=== PATIENT | male | born 1960 | race Caucasian/White ===

== ENCOUNTER 2016-03-13 11:47 | Outpatient (RCR) | payer MEDICARE ==
[~2016-03-13 11:47] MED LIST: ASPI81TA85 PO; COLA100C PO; LISI10TA2 PO; PERC5TAB6 PO; TYLE325T5 PO
== END 2016-04-10 ==
LOC: M ONCR 11:47
PROVIDERS: ATTEND Radiology Radiation Oncology
DX: C61 Malignant neoplasm of prostate (principal)

== ENCOUNTER 2016-04-02 08:11 | Emergency (ER) | payer MEDICARE ==
--- NOTE | 2016-04-02 10:10 | EDDOCDS ---
Physician Documentation [facility] Name: Davie Fulton Age: 56 yrs Sex: Male : 1960 Arrival Date: 04/02/2016 Time: 08:11 Bed I2 / M2 Private MD: Charis Caro ANP Disposition: 04/02/16 09:54 Discharged to Home/Self Care. Impression: Retention of urine. - Condition is Stable. - Discharge Instructions: Urinary Retention, Acute, Male. - Medication Reconciliation, Local Pharmacy Hours form. - Follow up: iJm King; When: Call to arrange an appointment; Reason: Recheck today's complaints. Follow up: Emergency Department; When: As needed; Reason: if unable to urinate and can't get into urology office. - Problem is new. - Symptoms have improved. Historical: - Allergies: no known allergies; - Home Meds: 1. Zestoretic 20-12.5 mg Oral tab 1 tab once daily (Last dose: 04/02/2016 07:00) 2. 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 No barriers to communication noted, Speaks appropriately for age. - Family history: Not pertinent. - : The pt / caregiver states he / she is not on anticoagulants. Home medication list is obtained from the patient, Unable to Verify Home Med List with the patient / caregiver. - Exposure Risk Screening:: None identified. Vital Signs: 04/02 08:18 BP 154 / 96; Pulse 96; Resp 16; Temp 97.9(TE); Pulse Ox 96% on R/A; Weight 130.18 kg / ml6 287 lbs; Height 5 ft. 11 in. (180.34 cm) (R); Pain 0/10; 10:07 BP 148 / 88; Pulse 92; Resp 20; Temp 97.4; Pulse Ox 97% on R/A; Pain 0/10; dls 08:18 Body Mass Index 40.03 (130.18 kg, 180.34 cm) ml6 MDM: 08:30 Bladder Scan please ordered. ar2 08:31 UA Ordered. EDMS 08:31 Urine Culture Ordered. EDMS 08:58 Straight cath ordered. ar2 09:35 Financial registration complete. mm15 09:37 [facility] Payment Agreement was scanned into [employer] and attached to record. mm15 09:52 UA Reviewed. ar2 Signatures: Dispatcher MedHost EDMS Bebe Hassan RN RN dls Lonny Vásquez PA-C PADidiC ar2 Jerad Robert RN RN ml6 Alex Tsai mm15 The chart was reviewed and I authenticate all verbal orders and agree with the evaluation and treatment provided.Attachments: 09:37 [facility] Payment Agreement mm15 MTDD
--- NOTE | 2016-04-02 10:10 | EDDOCDS ---
Nurse's Notes [facility] Name: Davie Fulton Age: 56 yrs Sex: Male : 1960 Arrival Date: 04/02/2016 Time: 08:11 Bed I2 / M2 Private MD: Charis Caro ANP Diagnosis: Retention of urine Presentation: 04/02 08:17 Presenting complaint: Patient states: states Hx of Prostate CA, Prostatectomy done ml6 nov-dec last year, last radiation treatment was Saturday, states oliguria since yesterday afternoon. Adult Sepsis Screening: The patient does not have new or worsening altered mentation. Patient's respiratory rate is less than 22. Systolic blood pressure is greater than 100. Patient has a qSOFA score of 0- Negative Sepsis Screen. Suicide/Homicide risk assessment- the patient denies having any suicidal and/or homicidal ideations and does not present with any other emotional, behavioral or mental health complaints. Status: Patient is not a automotive service manager or dependent. Transition of care: patient was not received from another setting of care. 08:17 Acuity: JOJO Level 3 ml6 08:17 Method Of Arrival: Walkin/Carried/Asstd ml6 Triage Assessment: 08:20 General: Appears in no apparent distress, Behavior is appropriate for age, cooperative. ml6 Pain: Denies pain. HIV screening NA for this visit Offered previously. Neurological: No deficits noted. Cardiovascular: No deficits noted. Capillary refill < 3 seconds is brisk in bilateral fingers toes. Respiratory: No deficits noted. GI: No deficits noted. : Reports urinary frequency. Historical: - Allergies: no known allergies; - Home Meds: 1. Zestoretic 20-12.5 mg Oral tab 1 tab once daily (Last dose: 04/02/2016 07:00) 2. 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 No barriers to communication noted, Speaks appropriately for age. - Family history: Not pertinent. - : The pt / caregiver states he / she is not on anticoagulants. Home medication list is obtained from the patient, Unable to Verify Home Med List with the patient / caregiver. - Exposure Risk Screening:: None identified. Screenin:17 Screening information is obtained from the patient. Fall risk: No risks identified. dls Assistance ADL's: requires no assistance with activities of daily living. Abuse/DV Screen: The patient / caregiver reports he/she is: not in a situation that causes fear, pain or injury. Nutritional screening: No deficits noted. Advance Directives: Currently, there is no health care proxy. There is no active DNR order. There is no living will. There is no Power of Diamond Polisher. home support is adequate. Assessment: 08:49 General: Pt brought into exam room sent to bathroom to void and was unable to. Bladder dls scan shows 289ml urine in bladder abdomen is obese non distended pt c/o feels like penis is swollen foreskin retracts easily no signs of swelling or redness.. 09:18 General: Straight cath 500cc urine obtained spec to lab.. dls Vital Signs: 08:18 BP 154 / 96; Pulse 96; Resp 16; Temp 97.9(TE); Pulse Ox 96% on R/A; Weight 130.18 kg; ml6 Height 5 ft. 11 in. (180.34 cm) (R); Pain 0/10; 10:07 BP 148 / 88; Pulse 92; Resp 20; Temp 97.4; Pulse Ox 97% on R/A; Pain 0/10; dls 08:18 Body Mass Index 40.03 (130.18 kg, 180.34 cm) ml6 Vitals: 08:18 Log In Time: April 02, 2016 at 08:10. ml6 ED Course: 08:12 Patient visited by Annetta Stewart Reg. lg 08:12 Charis Caro is Private Physician. lg 08:12 Patient moved to Waiting lg 08:18 Triage Initiated ml6 08:32 Patient moved to I2 / M2 ml6 08:35 Lonny V[facility]quez [facility]C [facility] ar2 08:35 Elaine De La Cruz MD is Attending Physician. ar2 08:38 Patient visited by Lonny Vásquez PA-C. ar2 09:13 Urine Culture Sent. dls 09:13 UA Sent. dls 09:17 The patient / caregiver is instructed regarding the plan of care and ED course. dls Accompanied by Family Member, Patient has correct armband on for positive identification. Placed in gown. Bed in low position. Call light in reach. Side rails up X 1. 09:17 No IV's were initiated during this patient's visit. No procedures done that require dls assistance. Straight cath inserted 16 Fr. returned bloody urine. Patient tolerated well. 09:37 [facility] Payment Agreement was scanned into [employer] and attached to record. mm15 09:38 Patient visited by Bebe Hassan RN. dls 09:52 Jim King is Referral Physician. ar2 Order Results: Lab Order: UA; SPEC'M 04/02/16 09:14 Test: APPEARANCE, URINE; Value: HAZY; Range: CLEAR; Status: F Test: COLOR, URINE; Value: YELLOW; Range: YELLOW; Status: F Test: PH,URINE; Value: 5.0; Range: 5.0-9.0; Units: UNITS; Status: F Test: SPECIFIC GRAVITY URINE AUTO; Value: 1.012; Range: 1.002-1.035; Status: F Test: PROTEIN, URINE AUTO; Value: 1+; Range: NEGATIVE; Abnormal: Above high normal; Units: mg/dL; Status: F Test: GLUCOSE, URINE (UA) AUTO; Value: NEGATIVE; Range: NEGATIVE; Units: mg/dL; Status: F Test: KETONE, URINE AUTO; Value: NEGATIVE; Range: NEGATIVE; Units: mg/dL; Status: F Test: UROBILINOGEN, URINE AUTO; Value: 0.2; Range: 0.0-2.0; Units: mg/dL; Status: F Test: BILIRUBIN, URINE AUTO; Value: NEGATIVE; Range: NEGATIVE; Status: F Test: NITRITE, URINE AUTO; Value: NEGATIVE; Range: NEGATIVE; Status: F Test: LEUKOCYTE ESTERASE, URINE AUTO; Value: TRACE; Range: NEGATIVE; Abnormal: Above high normal; Status: F Test: BLOOD, URINE BLOOD; Value: 3+; Range: NEGATIVE; Abnormal: Above high normal; Status: F Test: WBC, URINE AUTO; Value: 27; Range: 0-3; Abnormal: Above high normal; Units: /HPF; Status: F Test: RBC, URINE AUTO; Value: 71; Range: 0-3; Abnormal: Above high normal; Units: /HPF; Status: F Test: BACTERIA, URINE AUTO; Value: NEGATIVE; Range: NEGATIVE; Status: F Test: SQUAMOUS EPITHELIAL CELL UR AU; Value: 0; Range: 0-6; Units: /HPF; Status: F Test: MUCUS, URINE; Value: SMALL; Range: NEGATIVE; Status: F Test: HYALINE CAST, URINE AUTO; Value: 0; Range: 0-1; Units: /LPF; Status: F Outcome: 09:54 Discharge ordered by Provider. ar2 10:08 Discharge Assessment: Patient awake, alert and oriented x 3. No cognitive and/or dls functional deficits noted. Patient verbalized understanding of disposition instructions. patient administered narcotics - no. The following High Risk Discharge criteria are identified: None. Discharged to home ambulatory, with family. Condition: stable Condition: improved. Discharge instructions given to patient, family, Instructed on discharge instructions, follow up and referral plans. Demonstrated understanding of instructions, Pt was receptive of discharge instructions/ teaching. No special radiology studies were completed. Property sent home with patient. 10:09 Patient left the ED. dls Signatures: Bebe Hassan, RN RN dls Annetta Stewart, Daryn Reg Lonny Vásquez, PA-C PA-C ar2 Jerad Robert RN RN ml6 Alex Tsai mm15 MTDD
--- NOTE | 2016-04-04 11:11 | EDDOCDS ---
Nurse's Notes [facility] Name: Davie Fulton Age: 56 yrs Sex: Male : 1960 Arrival Date: 04/02/2016 Time: 08:11 Bed I2 / M2 Private MD: Charis Caro ANP Diagnosis: Retention of urine Presentation: 04/02 08:17 Presenting complaint: Patient states: states Hx of Prostate CA, Prostatectomy done ml6 nov-dec last year, last radiation treatment was Saturday, states oliguria since yesterday afternoon. Adult Sepsis Screening: The patient does not have new or worsening altered mentation. Patient's respiratory rate is less than 22. Systolic blood pressure is greater than 100. Patient has a qSOFA score of 0- Negative Sepsis Screen. Suicide/Homicide risk assessment- the patient denies having any suicidal and/or homicidal ideations and does not present with any other emotional, behavioral or mental health complaints. Status: Patient is not a accounting machine servicer or dependent. Transition of care: patient was not received from another setting of care. 08:17 Acuity: JOJO Level 3 ml6 08:17 Method Of Arrival: Walkin/Carried/Asstd ml6 Triage Assessment: 08:20 General: Appears in no apparent distress, Behavior is appropriate for age, cooperative. ml6 Pain: Denies pain. HIV screening NA for this visit Offered previously. Neurological: No deficits noted. Cardiovascular: No deficits noted. Capillary refill < 3 seconds is brisk in bilateral fingers toes. Respiratory: No deficits noted. GI: No deficits noted. : Reports urinary frequency. Historical: - Allergies: no known allergies; - Home Meds: 1. Zestoretic 20-12.5 mg Oral tab 1 tab once daily (Last dose: 04/02/2016 07:00) 2. 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 No barriers to communication noted, Speaks appropriately for age. - Family history: Not pertinent. - : The pt / caregiver states he / she is not on anticoagulants. Home medication list is obtained from the patient, Unable to Verify Home Med List with the patient / caregiver. - Exposure Risk Screening:: None identified. Screenin:17 Screening information is obtained from the patient. Fall risk: No risks identified. dls Assistance ADL's: requires no assistance with activities of daily living. Abuse/DV Screen: The patient / caregiver reports he/she is: not in a situation that causes fear, pain or injury. Nutritional screening: No deficits noted. Advance Directives: Currently, there is no health care proxy. There is no active DNR order. There is no living will. There is no Power of Ditching Machine Operating Engineer. home support is adequate. Assessment: 08:49 General: Pt brought into exam room sent to bathroom to void and was unable to. Bladder dls scan shows 289ml urine in bladder abdomen is obese non distended pt c/o feels like penis is swollen foreskin retracts easily no signs of swelling or redness.. 09:18 General: Straight cath 500cc urine obtained spec to lab.. dls Vital Signs: 08:18 BP 154 / 96; Pulse 96; Resp 16; Temp 97.9(TE); Pulse Ox 96% on R/A; Weight 130.18 kg; ml6 Height 5 ft. 11 in. (180.34 cm) (R); Pain 0/10; 10:07 BP 148 / 88; Pulse 92; Resp 20; Temp 97.4; Pulse Ox 97% on R/A; Pain 0/10; dls 08:18 Body Mass Index 40.03 (130.18 kg, 180.34 cm) ml6 Vitals: 08:18 Log In Time: April 02, 2016 at 08:10. ml6 ED Course: 08:12 Patient visited by Annetta Stewart Reg. lg 08:12 Charis Caro is Private Physician. lg 08:12 Patient moved to Waiting lg 08:18 Triage Initiated ml6 08:32 Patient moved to I2 / M2 ml6 08:35 Lonny Vásquez PA-C is [facility]. ar2 08:35 Elaine De La Cruz MD is Attending Physician. ar2 08:38 Patient visited by Lonny Vásquez PA-C. ar2 09:13 Urine Culture Sent. dls 09:13 UA Sent. dls 09:17 The patient / caregiver is instructed regarding the plan of care and ED course. dls Accompanied by Family Member, Patient has correct armband on for positive identification. Placed in gown. Bed in low position. Call light in reach. Side rails up X 1. 09:17 No IV's were initiated during this patient's visit. No procedures done that require dls assistance. Straight cath inserted 16 Fr. returned bloody urine. Patient tolerated well. 09:37 [facility] Payment Agreement was scanned into [employer] and attached to record. mm15 09:38 Patient visited by Bebe Hassan RN. dls 09:52 Jim King is Referral Physician. ar2 14:21 T-Sheet-- Draft Copy was scanned into [employer] and attached to record. gb Order Results: Lab Order: UA; SPEC'M 04/02/16 09:14 Test: APPEARANCE, URINE; Value: HAZY; Range: CLEAR; Status: F Test: COLOR, URINE; Value: YELLOW; Range: YELLOW; Status: F Test: PH,URINE; Value: 5.0; Range: 5.0-9.0; Units: UNITS; Status: F Test: SPECIFIC GRAVITY URINE AUTO; Value: 1.012; Range: 1.002-1.035; Status: F Test: PROTEIN, URINE AUTO; Value: 1+; Range: NEGATIVE; Abnormal: Above high normal; Units: mg/dL; Status: F Test: GLUCOSE, URINE (UA) AUTO; Value: NEGATIVE; Range: NEGATIVE; Units: mg/dL; Status: F Test: KETONE, URINE AUTO; Value: NEGATIVE; Range: NEGATIVE; Units: mg/dL; Status: F Test: UROBILINOGEN, URINE AUTO; Value: 0.2; Range: 0.0-2.0; Units: mg/dL; Status: F Test: BILIRUBIN, URINE AUTO; Value: NEGATIVE; Range: NEGATIVE; Status: F Test: NITRITE, URINE AUTO; Value: NEGATIVE; Range: NEGATIVE; Status: F Test: LEUKOCYTE ESTERASE, URINE AUTO; Value: TRACE; Range: NEGATIVE; Abnormal: Above high normal; Status: F Test: BLOOD, URINE BLOOD; Value: 3+; Range: NEGATIVE; Abnormal: Above high normal; Status: F Test: WBC, URINE AUTO; Value: 27; Range: 0-3; Abnormal: Above high normal; Units: /HPF; Status: F Test: RBC, URINE AUTO; Value: 71; Range: 0-3; Abnormal: Above high normal; Units: /HPF; Status: F Test: BACTERIA, URINE AUTO; Value: NEGATIVE; Range: NEGATIVE; Status: F Test: SQUAMOUS EPITHELIAL CELL UR AU; Value: 0; Range: 0-6; Units: /HPF; Status: F Test: MUCUS, URINE; Value: SMALL; Range: NEGATIVE; Status: F Test: HYALINE CAST, URINE AUTO; Value: 0; Range: 0-1; Units: /LPF; Status: F Lab Order: Urine Culture; SPEC'M 04/02/16 09:14 Test: URINE CULTURE; Value: <EXTERNAL COMMENT eCWMed> FULL REPORT IN LAB NOTES (eCW and Medent).; Status: F Test: URINE CULTURE; Value: URINE CULTURE RESULT NO GROWTH; Status: F Outcome: 09:54 Discharge ordered by Provider. ar2 10:08 Discharge Assessment: Patient awake, alert and oriented x 3. No cognitive and/or dls functional deficits noted. Patient verbalized understanding of disposition instructions. patient administered narcotics - no. The following High Risk Discharge criteria are identified: None. Discharged to home ambulatory, with family. Condition: stable Condition: improved. Discharge instructions given to patient, family, Instructed on discharge instructions, follow up and referral plans. Demonstrated understanding of instructions, Pt was receptive of discharge instructions/ teaching. No special radiology studies were completed. Property sent home with patient. 10:09 Patient left the ED. dls Signatures: Bebe Hassan, RN RN dls Kellie Mena, Reg Reg gb Annetta Stewart, Reg Reg lg Lonny Vásquez, PA-C PA-Jennifer ar2 Jerad Robert RN RN ml6 Alex Tsai mm15 Chart Complete MTDD
--- NOTE | 2016-04-04 11:11 | EDDOCDS ---
Physician Documentation [facility] Name: Davie Fulton Age: 56 yrs Sex: Male : 1960 Arrival Date: 04/02/2016 Time: 08:11 Bed I2 / M2 Private MD: Charis Caro ANP Disposition: 04/02/16 09:54 Discharged to Home/Self Care. Impression: Retention of urine. - Condition is Stable. - Discharge Instructions: Urinary Retention, Acute, Male. - Medication Reconciliation, Local Pharmacy Hours form. - Follow up: Jim King; When: Call to arrange an appointment; Reason: Recheck today's complaints. Follow up: Emergency Department; When: As needed; Reason: if unable to urinate and can't get into urology office. - Problem is new. - Symptoms have improved. Historical: - Allergies: no known allergies; - Home Meds: 1. Zestoretic 20-12.5 mg Oral tab 1 tab once daily (Last dose: 04/02/2016 07:00) 2. 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 No barriers to communication noted, Speaks appropriately for age. - Family history: Not pertinent. - : The pt / caregiver states he / she is not on anticoagulants. Home medication list is obtained from the patient, Unable to Verify Home Med List with the patient / caregiver. - Exposure Risk Screening:: None identified. Vital Signs: 04/02 08:18 BP 154 / 96; Pulse 96; Resp 16; Temp 97.9(TE); Pulse Ox 96% on R/A; Weight 130.18 kg / ml6 287 lbs; Height 5 ft. 11 in. (180.34 cm) (R); Pain 0/10; 10:07 BP 148 / 88; Pulse 92; Resp 20; Temp 97.4; Pulse Ox 97% on R/A; Pain 0/10; dls 08:18 Body Mass Index 40.03 (130.18 kg, 180.34 cm) ml6 MDM: 08:30 Bladder Scan please ordered. ar2 08:31 UA Ordered. EDMS 08:31 Urine Culture Ordered. EDMS 08:58 Straight cath ordered. ar2 09:35 Financial registration complete. mm15 09:37 [facility] Payment Agreement was scanned into [employer] and attached to record. mm15 09:52 UA Reviewed. ar2 14:21 T-Sheet-- Draft Copy was scanned into [employer] and attached to record. gb Signatures: Dispatcher MedHost EDMS Bebe Hassan, RN RN dls Kellie Mena, Reg Reg gb Lonny Vásquez, PA-C PA-C ar2 Jerad Robert RN RN ml6 Alex Tsai mm15 The chart was reviewed and I authenticate all verbal orders and agree with the evaluation and treatment provided.Attachments: 09:37 [facility] Payment Agreement mm15 14:21 T-Sheet-- Draft Copy gb Chart Complete MTDD
--- NOTE | 2016-04-04 11:11 | EDDOCDS ---
Physician Documentation [facility] Name: Davie Fulton Age: 56 yrs Sex: Male : 1960 Arrival Date: 04/02/2016 Time: 08:11 Bed I2 / M2 Private MD: Charis Caro ANP Disposition: 04/02/16 09:54 Discharged to Home/Self Care. Impression: Retention of urine. - Condition is Stable. - Discharge Instructions: Urinary Retention, Acute, Male. - Medication Reconciliation, Local Pharmacy Hours form. - Follow up: Jim King; When: Call to arrange an appointment; Reason: Recheck today's complaints. Follow up: Emergency Department; When: As needed; Reason: if unable to urinate and can't get into urology office. - Problem is new. - Symptoms have improved. Historical: - Allergies: no known allergies; - Home Meds: 1. Zestoretic 20-12.5 mg Oral tab 1 tab once daily (Last dose: 04/02/2016 07:00) 2. 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 No barriers to communication noted, Speaks appropriately for age. - Family history: Not pertinent. - : The pt / caregiver states he / she is not on anticoagulants. Home medication list is obtained from the patient, Unable to Verify Home Med List with the patient / caregiver. - Exposure Risk Screening:: None identified. Vital Signs: 04/02 08:18 BP 154 / 96; Pulse 96; Resp 16; Temp 97.9(TE); Pulse Ox 96% on R/A; Weight 130.18 kg / ml6 287 lbs; Height 5 ft. 11 in. (180.34 cm) (R); Pain 0/10; 10:07 BP 148 / 88; Pulse 92; Resp 20; Temp 97.4; Pulse Ox 97% on R/A; Pain 0/10; dls 08:18 Body Mass Index 40.03 (130.18 kg, 180.34 cm) ml6 MDM: 08:30 Bladder Scan please ordered. ar2 08:31 UA Ordered. EDMS 08:31 Urine Culture Ordered. EDMS 08:58 Straight cath ordered. ar2 09:35 Financial registration complete. mm15 09:37 [facility] Payment Agreement was scanned into [employer] and attached to record. mm15 09:52 UA Reviewed. ar2 14:21 T-Sheet-- Draft Copy was scanned into GLO and attached to record. gb Signatures: Dispatcher MedHost EDMS Bebe Hassan, RN RN dls Kellie Mena, Reg Reg gb Lonny Vásquez, PA-C PA-C ar2 Jerad Robert RN RN ml6 Alex Tsai mm15 The chart was reviewed and I authenticate all verbal orders and agree with the evaluation and treatment provided.Attachments: 09:37 [facility] Payment Agreement mm15 14:21 T-Sheet-- Draft Copy gb Chart Complete MTDD
== END 2016-04-02 10:09 | disposition home or self-care (01) ==
LOC: M ED 08:11
DX: R33.9 Retention of urine, unspecified (principal); C61 Malignant neoplasm of prostate; Z79.82 Long term (current) use of aspirin; Z79.899 Other long term (current) drug therapy

== ENCOUNTER → 2016-04-03 | Outpatient (CLI) | payer MEDICARE ==
[2016-04-03 19:06] LABS: ANION GAP 11 MEQ/L (8-16); BLOOD UREA NITROGEN 19 MG/DL (7-18); CALCIUM LEVEL 9.1 MG/DL (8.5-10.1); CARBON DIOXIDE LEVEL 26 MEQ/L (21-32); CHLORIDE LEVEL 104 MEQ/L (98-107); CREATININE FOR GFR 0.82 MG/DL (0.70-1.30); GLOMERULAR FILTRATION RATE > 60.0 (>56); GLUCOSE, FASTING 149 MG/DL (70-105); POTASSIUM SERUM 3.6 MEQ/L (3.5-5.1); SODIUM LEVEL 141 MEQ/L (136-145)
[2016-04-03 20:00] LABS: MEAN CORPUSCULAR HEMOGLOBIN 32.3 pg (27.0-33.0); MEAN CORPUSCULAR HGB CONC 34.8 g/dl (32.0-36.5); RED CELL DISTRIBUTION WIDTH 14.2 % (11.5-14.5); WHITE BLOOD COUNT 8.4 K/mm3 (4.0-10.0)
== END ==
LOC: M WUC 13:36
PROVIDERS: ATTEND Urology
DX: Z01.818 Encounter for other preprocedural examination (principal); C61 Malignant neoplasm of prostate; R33.9 Retention of urine, unspecified; N48.89 Other specified disorders of penis
CPT/HCPCS: 36415; 51798; 52000; 80048; 85027; G0463

== ENCOUNTER → 2016-04-13 | Day surgery (SDC) | payer MEDICARE ==
[~2016-04-13] VITALS: Ht 172.7 cm; Wt 132.9 kg
[~2016-04-13] MED LIST changes: +ACETAMINOPHEN TAB 650MG DOSE (2X325MG) PO PRN; +CONRAY-60 60% 50ML VIAL (Q9961) As Ordered ONE; +FUROSEMIDE 100 MG/10 ML VIAL (J1940) As Ordered ONE; +LIDOCAINE 2% INJ 100 MG/5 ML SDV (FOR ANES.) As Ordered ONE; +LR 1,000 ML IV SCH; +MIDAZOLAM INJ 2 MG/2 ML VIAL (J2250) As Ordered ONE; +ONDANSETRON 4MG/2ML VIAL (J2405) As Ordered ONE; +ONDANSETRON 4MG/2ML VIAL (J2405) IV PRN; +PERCOCET 5MG/325MG TAB PO PRN; +PROPOFOL 200 MG/20 ML VIAL As Ordered ONE; +dexameTHASONE 4 MG/ML 1ML VIAL (J1100) As Ordered ONE; +fentaNYL 100 MCG/2 ML INJECTION (J3010) As Ordered ONE; +fentaNYL 100 MCG/2 ML INJECTION (J3010) IV PRN; +oxyBUTYnin 5 MG TAB PO PRN
[2016-04-13 15:29] VITALS: BP 139/78
--- NOTE | 2016-04-13 21:58 | RO ---
DATE OF PROCEDURE: 04/13/2016 PREPROCEDURE DIAGNOSIS: Bladder foreign bodies. POSTPROCEDURE DIAGNOSIS: Bladder foreign bodies. PROCEDURE: Cystoscopy with removal of foreign bodies from bladder. SURGEON: Dr. Jim King HULL MOLDER: None. ANESTHESIA: General. OPERATIVE INDICATIONS: This is a 56-year-old male who underwent a robotic- assisted laparoscopic radical prostatectomy several months ago, which was followed by salvage radiation therapy. He has had persistent penile pain and also urinary retention recently. Cystoscopy was performed in the office, and it was notable for multiple Hem-o-shanon clips within his bladder neck area. Given the concern that this might be causing his pain, we recommended he be brought to the operating room today for removal of these foreign bodies. DESCRIPTION OF PROCEDURE: The patient was brought to the operating room and general anesthesia was induced. Prophylactic antibiotics were infused. He was then placed in the dorsal lithotomy position and prepped and draped in the usual sterile fashion. A rigid cystoscope was then inserted into the urethral meatus and advanced into the bladder. At this point, several Hem-o-shanon clips were seen embedded within the tissue along the base of the bladder neck. I sequentially removed each of these clips using a grasper until all visible clips had been removed. I suspect that given the location that they managed to erode in through the bladder neck at that area. At this point, there was a small amount of bleeding coming from the bladder neck but nothing significant. At this point, the cystoscope was removed and an 18-Tajik Coude catheter was inserted into the bladder. The catheter balloon was then filled with 10 mL of sterile water and urine drained light pink at the end of the procedure. The catheter was then connected to gravity drainage and this marked the conclusion of the procedure. The patient was then taken out of the dorsal lithotomy position, awakened from anesthesia and transported to the recovery room in stable condition. ESTIMATED BLOOD LOSS: 0 mL. COMPLICATIONS: None. SPECIMENS: None. PLAN: The patient will followup in the clinic in about 2 weeks for catheter removal and a voiding trial. RONDA
== END | disposition home or self-care (01) ==
LOC: M SDC 10:31
PROVIDERS: ATTEND Urology
DX: T19.1XXA Foreign body in bladder, initial encounter (principal); R33.9 Retention of urine, unspecified; C61 Malignant neoplasm of prostate; I10 Essential (primary) hypertension; Z92.3 Personal history of irradiation; Z79.899 Other long term (current) drug therapy; Z79.82 Long term (current) use of aspirin; Z87.442 Personal history of urinary calculi
CPT/HCPCS: 52310; J0690; J1100; J1940; J2250; J2405; J3010; Q9961

== ENCOUNTER → 2016-04-19 | Outpatient (REF) | payer MEDICARE ==
[~2016-04-19] MED LIST changes: -ACETAMINOPHEN TAB 650MG DOSE (2X325MG) PO PRN; -CONRAY-60 60% 50ML VIAL (Q9961) As Ordered ONE; -FUROSEMIDE 100 MG/10 ML VIAL (J1940) As Ordered ONE; -LIDOCAINE 2% INJ 100 MG/5 ML SDV (FOR ANES.) As Ordered ONE; -LR 1,000 ML IV SCH; -MIDAZOLAM INJ 2 MG/2 ML VIAL (J2250) As Ordered ONE; -ONDANSETRON 4MG/2ML VIAL (J2405) As Ordered ONE; -ONDANSETRON 4MG/2ML VIAL (J2405) IV PRN; -PERCOCET 5MG/325MG TAB PO PRN; -PROPOFOL 200 MG/20 ML VIAL As Ordered ONE; -dexameTHASONE 4 MG/ML 1ML VIAL (J1100) As Ordered ONE; -fentaNYL 100 MCG/2 ML INJECTION (J3010) As Ordered ONE; -fentaNYL 100 MCG/2 ML INJECTION (J3010) IV PRN; -oxyBUTYnin 5 MG TAB PO PRN
== END ==
LOC: M LABDRAWC 16:11
PROVIDERS: ATTEND Radiology Radiation Oncology
DX: C61 Malignant neoplasm of prostate (principal)

== ENCOUNTER → 2016-04-25 | Outpatient (CLI) | payer MEDICARE ==
--- NOTE | 2016-04-27 12:46 | RADONC ---
RADIATION ONCOLOGY FOLLOWUP NOTE DATE: 04/25/2016 CHART NUMBER [id number] DIAGNOSIS: Prostate cancer. STAGE: IIB, [id number]. ECOG PERFORMANCE STATUS: 0 TREATMENT SUMMARY: Mr. Fulton is a very pleasant, 56-year-old white male with the diagnosis of what appears to be a stage IIB, [id number] moderate to poorly differentiated [place] score 7 (3-4) adenocarcinoma of prostate who is presenting to us for a routine followup visit 1 month post completion of external beam radiation therapy. The patient presents today reporting that he is doing quite well with no complaints at this time related to his radiation therapy or disease. He has no urinary or bowel difficulties and no bone pain. REVIEW OF SYSTEMS: The patient's review of systems is noncontributory. Denies nausea, vomiting, fevers, chills, night sweats, diplopia, headaches, anxiety or depression, anorexia, weight loss, visual disturbances, chest pain, urinary or bowel difficulties, bone pain, or neurological problems. PHYSICAL EXAMINATION: The patient is a well-developed, well-nourished male in no acute distress. HEENT exam is normocephalic, atraumatic. Extraocular movements are intact. There is no palpable cervical, supraclavicular, infraclavicular, axillary, or inguinal lymphadenopathy present. Lungs are clear to auscultation and percussion. Heart has a regular rate and rhythm. Abdomen is benign with no hepatosplenomegaly, masses, or tenderness. Rectal examination reveals a normal anal sphincter tone. His prostate is smooth with no evidence of nodularity. Skeletal examination reveals no tenderness to pressure or percussion of the bony skeleton. Extremities reveal no clubbing, cyanosis, or edema. Neurologic exam is grossly intact, as is the remainder of the physical examination. ASSESSMENT: The patient is clinically MILO at this time and will be seen by us again in 6 months for further followup. He will also continue to be followed by his other physicians as well. Edited: 04/27/2016 1254 vl cc: Jim King MD *Charis Caro NP
== END ==
LOC: M ONCR 15:20
PROVIDERS: ATTEND Radiology Radiation Oncology
DX: C61 Malignant neoplasm of prostate (principal)

== ENCOUNTER → 2016-05-24 | Outpatient (REF) | payer MEDICARE | LOC: M SFHCCLAY 08:05 | PROVIDERS: ATTEND Urology | DX: C61 Malignant neoplasm of prostate (principal) ==

== ENCOUNTER → 2016-07-11 | Outpatient (REF) | payer MEDICARE ==
[~2016-07-11] MED LIST changes: -COLA100C PO; +COLA100C3 PO
[2016-07-11 12:35] LABS: ALBUMIN 3.6 GM/DL (3.2-5.2); ALBUMIN/GLOBULIN RATIO 1.06 (1.00-1.93); ALKALINE PHOSPHATASE 85 U/L (45-117); ALT/SGPT 19 U/L (12-78); ANION GAP 8 MEQ/L (8-16); AST/SGOT 20 U/L (15-37); BILIRUBIN,TOTAL 0.5 MG/DL (0.2-1.0); BLOOD UREA NITROGEN 19 MG/DL (7-18); CALCIUM LEVEL 8.4 MG/DL (8.5-10.1); CARBON DIOXIDE LEVEL 27 MEQ/L (21-32); CHLORIDE LEVEL 103 MEQ/L (98-107); CHOLESTEROL LEVEL 149 MG/DL (<200); CREATININE FOR GFR 0.75 MG/DL (0.70-1.30); GLOMERULAR FILTRATION RATE > 60.0 (>56); GLUCOSE, FASTING 118 MG/DL (70-105); POTASSIUM SERUM 3.8 MEQ/L (3.5-5.1); SODIUM LEVEL 138 MEQ/L (136-145); TRIGLYCERIDES LEVEL 95 MG/DL (<150)
== END ==
LOC: M SFHCCLAY 07:33
PROVIDERS: ATTEND Nurse Practitioner
DX: I10 Essential (primary) hypertension (principal)

== ENCOUNTER → 2016-07-16 | Outpatient (CLI) | payer MEDICARE ==
--- NOTE | 2016-07-17 06:44 | REP ---
REASON: Odom pain status post trauma a month ago. FINDINGS: No acute fracture or destructive osseous lesion. If the patient has chronic pain, MRI should be considered.
== END ==
LOC: M CLY 15:53
PROVIDERS: ATTEND Nurse Practitioner
DX: S89.91XA Unspecified injury of right lower leg, initial encounter (principal); W18.09XA Striking against other object with subsequent fall, initial encounter; Y92.9 Unspecified place or not applicable; Y93.K9 Activity, other involving animal care; Y99.8 Other external cause status
CPT/HCPCS: 73590; G0463

== ENCOUNTER → 2016-08-28 | Outpatient (REF) | payer MEDICARE | LOC: M SFHCCLAY 07:50 | PROVIDERS: ATTEND Urology | DX: C61 Malignant neoplasm of prostate (principal) ==

== ENCOUNTER → 2016-09-06 | Outpatient (REF) | payer MEDICARE, MEDICAID ==
[~2016-09-06] MED LIST changes: -COLA100C3 PO; +COLA100C5 PO; +PERC5TAB12 PO; -PERC5TAB6 PO
== END ==
LOC: EEVIPCON 17:08 → M SMT 17:08
PROVIDERS: ATTEND Urology
DX: R30.0 Dysuria (principal)
CPT/HCPCS: 51798; 81001; 87086; G0463

== ENCOUNTER → 2016-09-14 | Outpatient (REF) | payer MEDICARE | LOC: M LAB REF 10:44 | PROVIDERS: ATTEND Physician Assistant | DX: L02.415 Cutaneous abscess of right lower limb (principal) ==

== ENCOUNTER → 2016-10-23 | Outpatient (REF) | payer MEDICARE | LOC: M LABDRAWC 11:23 | PROVIDERS: ATTEND Radiology Radiation Oncology | DX: C61 Malignant neoplasm of prostate (principal) ==

== ENCOUNTER → 2016-10-31 | Outpatient (CLI) | payer MEDICARE ==
--- NOTE | 2016-11-01 13:32 | RADONC ---
RADIATION ONCOLOGY FOLLOWUP NOTE DATE: 10/31/2016 CHART NUMBER: [id number] DIAGNOSIS: Prostate cancer. STAGE: II B, [id number]. ECOG PERFORMANCE STATUS: 0 FOLLOWUP NOTE: Mr. Fulton is a very pleasant 56-year-old white male with the diagnosis of what appears to be a stage II B, [id number] moderate to poorly differentiated [place] score 7 (3-4) adenocarcinoma of the prostate who is presenting to us today for routine followup visit 7 months post completion of external beam radiation therapy. The patient presents today reporting that he is doing quite well with no complaints at this time related to his radiation therapy or disease. He has no urinary or bowel difficulties. No bone pain. The patient's review of systems is noncontributory. He denies nausea, vomiting, fevers, chills, night sweats, diplopia, headaches, anxiety or depression, anorexia, weight loss, visual disturbances, chest pain, urinary or bowel difficulties, bone pain, or neurological problems. ASSESSMENT: The patient is clinically MILO at this time and will be seen by us again in 6 months for further followup. He will also continue to be followed by his other physicians as well. cc: MD Charis Goodson, ANP
== END ==
LOC: M ONCR 14:15
PROVIDERS: ATTEND Radiology Radiation Oncology
DX: C61 Malignant neoplasm of prostate (principal)

== ENCOUNTER → 2016-11-27 | Outpatient (REF) | payer MEDICARE | LOC: M SFHCCLAY 08:22 | PROVIDERS: ATTEND Urology | DX: C61 Malignant neoplasm of prostate (principal) ==

== ENCOUNTER → 2017-03-14 | Outpatient (REF) | payer MEDICARE ==
[2017-03-14 12:19] LABS: PROSTATIC SPECIFIC AG MONITOR 0.11 NG/ML (< 4.0)
== END ==
LOC: M SFHCCLAY 07:58
DX: C61 Malignant neoplasm of prostate (principal)
CPT/HCPCS: 84153

== ENCOUNTER → 2017-03-22 | Outpatient (REF) | payer MEDICARE | LOC: M SMT 12:58 | DX: R30.0 Dysuria (principal) | CPT/HCPCS: 87086 ==

== ENCOUNTER → 2017-04-11 | Outpatient (REF) | payer MEDICARE ==
[2017-04-11 12:38] LABS: PROSTATIC SPECIFIC AG MONITOR 0.16 NG/ML (< 4.0)
== END ==
LOC: M LABDRAWC 11:23
DX: C61 Malignant neoplasm of prostate (principal)
CPT/HCPCS: 84153

== ENCOUNTER → 2017-04-11 | Outpatient (REF) | payer MEDICARE | LOC: M LABSMT 07:58 | DX: R30.0 Dysuria (principal) | CPT/HCPCS: 87086 ==

== ENCOUNTER → 2017-05-01 | Outpatient (CLI) | payer MEDICARE | LOC: M ONCR 11:18 | DX: C61 Malignant neoplasm of prostate (principal) | CPT/HCPCS: G0463 ==

== ENCOUNTER → 2017-09-10 | Outpatient (REF) | payer MEDICARE ==
[2017-09-10 11:23] LABS: EOS # 0.3 10^3/uL (0.0-0.50); EOS % 7.1 % (0.0-3.0); HEMATOCRIT 40.2 % (42.0-52.0); HEMOGLOBIN 14.6 g/dl (13.5-17.5); IMMATURE GRANULOCYTE % 0.8 % (0-3.0); LYMPH # 1.1 10^3/uL (1.5-4.5); LYMPH % 28.5 % (24.0-44.0); MEAN CORPUSCULAR HEMOGLOBIN 33.7 pg (27.0-33.0); MEAN CORPUSCULAR HGB CONC 36.3 g/dl (32.0-36.5); MEAN CORPUSCULAR VOLUME 92.8 fl (80.0-96.0); MONO # 0.4 10^3/uL (0.0-0.8); MONO % 10.9 % (0.0-5.0); NEUTROPHILS % 51.7 % (36.0-66.0); PLATELET COUNT, AUTOMATED 239 10^3/uL (150-450); RED BLOOD COUNT 4.33 10^6/uL (4.30-6.10); RED CELL DISTRIBUTION WIDTH 12.1 % (11.5-14.5); WHITE BLOOD COUNT 3.9 10^3/uL (4.0-10.0)
[2017-09-10 11:34] LABS: PROSTATIC SPECIFIC AG MONITOR 0.12 NG/ML (< 4.0)
[2017-09-10 11:43] LABS: ALBUMIN 3.6 GM/DL (3.2-5.2); ALBUMIN/GLOBULIN RATIO 1.13 (1.00-1.93); ALKALINE PHOSPHATASE 66 U/L (45-117); ALT/SGPT 20 U/L (12-78); ANION GAP 9 MEQ/L (8-16); AST/SGOT 21 U/L (7-37); BILIRUBIN,TOTAL 0.5 MG/DL (0.2-1.0); BLOOD UREA NITROGEN 21 MG/DL (7-18); CALCIUM LEVEL 8.2 MG/DL (8.5-10.1); CARBON DIOXIDE LEVEL 27 MEQ/L (21-32); CHLORIDE LEVEL 106 MEQ/L (98-107); CHOLESTEROL LEVEL 121 MG/DL (<200); CHOLESTEROL RISK RATIO 2.813 (<5); CREATININE FOR GFR 0.85 MG/DL (0.70-1.30); FREE T4 1.04 NG/DL (0.76-1.46); GLOMERULAR FILTRATION RATE > 60.0 (>56); GLUCOSE, FASTING 105 MG/DL (70-100); HDL CHOLESTEROL 43 MG/DL (>40); LDL CHOLESTEROL 62.4 MG/DL (<100); NON-HDL-C 78 MG/DL; POTASSIUM SERUM 4.1 MEQ/L (3.5-5.1); SODIUM LEVEL 142 MEQ/L (136-145); TOTAL PROTEIN 6.8 GM/DL (6.4-8.2); TRIGLYCERIDES LEVEL 78 MG/DL (<150)
[2017-09-10 14:02] LABS: ESTIMATED AVERAGE GLUCOSE 105 MG/DL (60-110); HEMOGLOBIN A1c 5.3 %
== END ==
LOC: M SFHCCLAY 07:45
DX: L03.115 Cellulitis of right lower limb (principal); I10 Essential (primary) hypertension; I87.2 Venous insufficiency (chronic) (peripheral); Z13.1 Encounter for screening for diabetes mellitus; C61 Malignant neoplasm of prostate
CPT/HCPCS: 84443

== ENCOUNTER → 2018-05-07 | Outpatient (CLI) | payer MEDICAID, MEDICARE ==
--- NOTE | 2018-05-12 09:30 | RADONC ---
RADIATION ONCOLOGY FOLLOW-UP NOTE DATE: 05/07/2018 CHART NUMBER: [id number] DIAGNOSIS: Prostate cancer. STAGE: IIB, [id number]. ECOG PERFORMANCE STATUS: 0 FOLLOW-UP NOTE: Mr. Fulton is a very pleasant 58-year-old white male with the diagnosis of what appears to be a stage IIB, [id number], moderate to poorly differentiated [place] score 7 (3-4) adenocarcinoma of the prostate who is presenting to us today for routine followup visit 2 years and 1 month post completion of external beam radiation therapy. The patient presents today reporting that he is doing quite well with no complaints at this time related to his radiation therapy or disease. He is having no urinary or bowel difficulties and no bone pain. REVIEW OF SYSTEMS: The patient's review of systems is noncontributory. He denies nausea, vomiting, fevers, chills, night sweats, diplopia, headaches, anxiety or depression, anorexia, weight loss, visual disturbances, chest pain, urinary or bowel difficulties, bone pain or neurological problems. PHYSICAL EXAMINATION: The patient is a well-developed, well-nourished male in no acute distress. HEENT exam is normocephalic, atraumatic. Extraocular movements are intact. There is no palpable cervical, supraclavicular, infraclavicular, axillary, or inguinal lymphadenopathy present. Lungs are clear to auscultation and percussion. Heart has a regular rate and rhythm. Abdomen is benign with no hepatosplenomegaly, masses, or tenderness. Rectal examination reveals a normal anal sphincter tone. His prostate bed is smooth with no evidence of nodularity or residual disease. Skeletal examination reveals no tenderness to pressure or percussion of the bony skeleton. Extremities reveal no clubbing, cyanosis, or edema. Neurologic exam is grossly intact as is the remainder of the physical examination. The patient is clinically MILO at this time. He is being followed closely by Dr. King who is ordering his PSAs. In light of this, I have discharged him except on a p.r.n. basis. cc: MD Charis Goodson, SILVANO
== END ==
LOC: M ONCR 13:39
PROVIDERS: ATTEND Radiology Radiation Oncology
DX: C61 Malignant neoplasm of prostate (principal)

== ENCOUNTER → 2018-05-13 | Outpatient (REF) | payer MEDICARE | LOC: M SFHCPLAZ 11:21 | PROVIDERS: ATTEND Nurse Practitioner Family | DX: L72.3 Sebaceous cyst (principal) | CPT/HCPCS: 87070; 87076; G0463 ==

== ENCOUNTER → 2018-07-09 | Outpatient (REF) | payer MEDICARE | LOC: M SFHCCLAY 11:21 | PROVIDERS: ATTEND Nurse Practitioner Family | DX: S30.861A Insect bite (nonvenomous) of abdominal wall, initial encounter (principal); W57.XXXA Bitten or stung by nonvenomous insect and other nonvenomous arthropods, initial encounter ==

== ENCOUNTER → 2018-09-16 | Outpatient (REF) | payer MEDICARE, MEDICAID | LOC: M SFHCCLAY 08:54 | PROVIDERS: ATTEND Urology | DX: C61 Malignant neoplasm of prostate (principal) ==

== ENCOUNTER → 2019-03-13 | Outpatient (REF) | payer MEDICARE, MEDICAID ==
[~2019-03-13] MED LIST changes: +LISI10TA15 PO; -LISI10TA2 PO
[2019-03-13 11:31] LABS: BASO % 0.9 % (0.0-1.0); EOS # 0.3 10^3/uL (0.0-0.5); EOS % 6.6 % (0.0-3.0); HEMATOCRIT 47.1 % (42.0-52.0); HEMOGLOBIN 15.8 g/dl (13.5-17.5); LYMPH # 1.2 10^3/uL (1.5-5.0); LYMPH % 28.6 % (24.0-44.0); MEAN CORPUSCULAR HEMOGLOBIN 32.7 pg (27.0-33.0); MEAN CORPUSCULAR HGB CONC 33.5 g/dl (32.0-36.5); MEAN CORPUSCULAR VOLUME 97.5 fl (80.0-96.0); MONO # 0.5 10^3/uL (0.0-0.8); NEUTROPHILS # 2.2 10^3/uL (1.5-8.5); NEUTROPHILS % 52.2 % (36.0-66.0); PLATELET COUNT, AUTOMATED 219 10^3/uL (150-450); RED BLOOD COUNT 4.83 10^6/uL (4.30-6.10); WHITE BLOOD COUNT 4.3 10^3/uL (4.0-10.0)
[2019-03-13 11:43] LABS: ALBUMIN 3.8 GM/DL (3.2-5.2); ALT/SGPT 19 U/L (12-78); BILIRUBIN,TOTAL 0.4 MG/DL (0.2-1.0); BLOOD UREA NITROGEN 23 MG/DL (7-18); CALCIUM LEVEL 8.7 MG/DL (8.8-10.2); CARBON DIOXIDE LEVEL 28 MEQ/L (21-32); CHLORIDE LEVEL 108 MEQ/L (98-107); CHOLESTEROL LEVEL 148 MG/DL (<200); CREATININE FOR GFR 0.87 MG/DL (0.70-1.30); FREE T4 1.02 NG/DL (0.76-1.46); GLOMERULAR FILTRATION RATE > 60.0 (>49); GLUCOSE, FASTING 100 MG/DL (70-100); HDL CHOLESTEROL 55 MG/DL (>40); LDL CHOLESTEROL 82 MG/DL (<100); NON-HDL-C 93 MG/DL; POTASSIUM SERUM 4.5 MEQ/L (3.5-5.1); PROSTATIC SPECIFIC AG MONITOR 0.18 NG/ML (< 4.00); SODIUM LEVEL 141 MEQ/L (136-145); TOTAL PROTEIN 7.2 GM/DL (6.4-8.2); TRIGLYCERIDES LEVEL 55 MG/DL (<150)
== END ==
LOC: M SFHCCLAY 07:42
PROVIDERS: ATTEND Nurse Practitioner Family
DX: C61 Malignant neoplasm of prostate (principal); I10 Essential (primary) hypertension

== ENCOUNTER → 2019-10-01 | Outpatient (REF) | payer MEDICARE, MEDICAID ==
[~2019-10-01] MED LIST changes: -ASPI81TA85 PO; +ASPI81TA86 PO
== END ==
LOC: M SFHCCLAY 10:40
PROVIDERS: ATTEND Urology
DX: Z53.9 Procedure and treatment not carried out, unspecified reason (principal); C61 Malignant neoplasm of prostate

== ENCOUNTER → 2020-02-16 | Outpatient (REF) | payer MEDICARE, MEDICAID ==
[2020-02-16 11:56] LABS: BASO % 0.7 % (0.0-1.0); EOS # 0.1 10^3/uL (0.0-0.5); EOS % 2.2 % (0.0-3.0); HEMATOCRIT 45.6 % (42.0-52.0); HEMOGLOBIN 15.5 g/dl (13.5-17.5); LYMPH % 25.2 % (24.0-44.0); MEAN CORPUSCULAR HEMOGLOBIN 32.8 pg (27.0-33.0); MEAN CORPUSCULAR VOLUME 96.4 fl (80.0-96.0); MONO # 0.4 10^3/uL (0.0-0.8); MONO % 9.2 % (0.0-5.0); NEUTROPHILS # 2.5 10^3/uL (1.5-8.5); NEUTROPHILS % 61.7 % (36.0-66.0); PLATELET COUNT, AUTOMATED 244 10^3/uL (150-450); RED BLOOD COUNT 4.73 10^6/uL (4.30-6.10)
[2020-02-16 12:29] LABS: ALBUMIN 3.8 GM/DL (3.2-5.2); ALT/SGPT 21 U/L (12-78); BILIRUBIN,TOTAL 0.5 MG/DL (0.2-1.0); BLOOD UREA NITROGEN 29 MG/DL (7-18); CALCIUM LEVEL 8.6 MG/DL (8.8-10.2); CARBON DIOXIDE LEVEL 28 MEQ/L (21-32); CHLORIDE LEVEL 107 MEQ/L (98-107); CHOLESTEROL LEVEL 169 MG/DL (<200); CHOLESTEROL RISK RATIO 2.816 (<5); CREATININE FOR GFR 0.92 MG/DL (0.70-1.30); GLOMERULAR FILTRATION RATE > 60.0 (>49); GLUCOSE, FASTING 91 MG/DL (70-100); HDL CHOLESTEROL 60 MG/DL (>40); LDL CHOLESTEROL 95 MG/DL (<100); NON-HDL-C 109 MG/DL; POTASSIUM SERUM 4.4 MEQ/L (3.5-5.1); SODIUM LEVEL 139 MEQ/L (136-145); TRIGLYCERIDES LEVEL 70 MG/DL (<150)
[2020-02-16 12:52] LABS: HEMOGLOBIN A1c 5.2 %
== END ==
LOC: M SFHCCLAY 08:52
PROVIDERS: ATTEND Nurse Practitioner Family
DX: I10 Essential (primary) hypertension (principal); Z13.1 Encounter for screening for diabetes mellitus

== ENCOUNTER → 2020-03-18 | Outpatient (REF) | payer MEDICARE, MEDICAID | LOC: M SFHCCLAY 11:22 | PROVIDERS: ATTEND Urology | DX: C61 Malignant neoplasm of prostate (principal) ==

== ENCOUNTER → 2020-09-21 | Outpatient (REF) | payer MEDICARE, MEDICAID | LOC: M SFHCCLAY 08:39 | PROVIDERS: ATTEND Urology | DX: C61 Malignant neoplasm of prostate (principal) ==

== ENCOUNTER → 2021-03-01 | Outpatient (REF) | payer MEDICARE, MEDICAID ==
[~2021-03-01] MED LIST changes: -LISI10TA15 PO; +LISI10TA24 PO
[2021-03-02 11:46] LABS: BASO % 0.5 % (0.0-1.0); EOS # 0.1 10^3/uL (0.0-0.5); EOS % 0.9 % (0.0-3.0); HEMATOCRIT 47.1 % (42.0-52.0); HEMOGLOBIN 16.5 g/dl (13.5-17.5); LYMPH # 1.3 10^3/uL (1.5-5.0); LYMPH % 15.8 % (24.0-44.0); MEAN CORPUSCULAR HEMOGLOBIN 33.5 pg (27.0-33.0); MEAN CORPUSCULAR VOLUME 95.5 fl (80.0-96.0); MONO # 0.6 10^3/uL (0.0-0.8); MONO % 7.3 % (2.0-8.0); NEUTROPHILS # 6.1 10^3/uL (1.5-8.5); PLATELET COUNT, AUTOMATED 260 10^3/uL (150-450); RED BLOOD COUNT 4.93 10^6/uL (4.30-6.10); WHITE BLOOD COUNT 8.2 10^3/uL (4.0-10.0)
[2021-03-02 12:24] LABS: ALBUMIN 4.3 GM/DL (3.2-5.2); ALT/SGPT 20 U/L (12-78); BILIRUBIN,TOTAL 0.6 MG/DL (0.2-1.0); BLOOD UREA NITROGEN 21 MG/DL (7-18); CARBON DIOXIDE LEVEL 30 MEQ/L (21-32); CHLORIDE LEVEL 105 MEQ/L (98-107); CHOLESTEROL LEVEL 154 MG/DL (<200); CHOLESTEROL RISK RATIO 2.905 (<5); FREE T4 1.13 NG/DL (0.76-1.46); GLOMERULAR FILTRATION RATE > 60.0 (>49); GLUCOSE, FASTING 92 MG/DL (70-100); HDL CHOLESTEROL 53 MG/DL (>40); LDL CHOLESTEROL 85 MG/DL (<100); NON-HDL-C 101 MG/DL; POTASSIUM SERUM 5.3 MEQ/L (3.5-5.1); PROSTATIC SPECIFIC AG MONITOR 0.25 NG/ML (< 4.00); SODIUM LEVEL 139 MEQ/L (136-145); TOTAL PROTEIN 7.6 GM/DL (6.4-8.2); TRIGLYCERIDES LEVEL 82 MG/DL (<150)
== END ==
LOC: M SFHCCLAY 13:58
PROVIDERS: ATTEND Nurse Practitioner Family
DX: Z13.1 Encounter for screening for diabetes mellitus (principal); C61 Malignant neoplasm of prostate; I10 Essential (primary) hypertension; Z23 Encounter for immunization
CPT/HCPCS: 80053; 80061; 83036; 84153; 84439; 84443; 85025; 90472; 90682; 90715; G0008

== ENCOUNTER → 2021-10-05 | Outpatient (REF) | payer MEDICARE, MEDICAID | LOC: M SFHCCLAY 07:57 | PROVIDERS: ATTEND Urology | DX: C61 Malignant neoplasm of prostate (principal) ==

== ENCOUNTER → 2022-04-09 | Outpatient (REF) | payer MEDICARE, MEDICAID | LOC: M SFHCCLAY 15:12 | PROVIDERS: ATTEND Urology | DX: C61 Malignant neoplasm of prostate (principal) ==

== ENCOUNTER → 2022-05-01 | Outpatient (CLI) | payer MEDICARE, MEDICAID | LOC: M RAD 11:56 | PROVIDERS: ATTEND Nurse Practitioner Family | DX: I87.2 Venous insufficiency (chronic) (peripheral) (principal); I10 Essential (primary) hypertension; R60.0 Localized edema; Z85.46 Personal history of malignant neoplasm of prostate; Z86.14 Personal history of Methicillin resistant Staphylococcus aureus infection; Z79.82 Long term (current) use of aspirin ==

== ENCOUNTER → 2022-10-30 | Outpatient (REF) | payer MEDICARE, MEDICAID | LOC: M LAB REF 19:37 | PROVIDERS: ATTEND Urology | DX: C61 Malignant neoplasm of prostate (principal) ==

== ENCOUNTER → 2023-04-10 | Outpatient (REF) | payer MEDICARE, MEDICAID | LOC: M SFHCCLAY 15:14 | PROVIDERS: ATTEND Urology | DX: C61 Malignant neoplasm of prostate (principal) ==

== ENCOUNTER → 2023-10-21 | Outpatient (CLI) | payer MEDICARE, MEDICAID | LOC: M WUC 15:29 | PROVIDERS: ATTEND Urology | DX: C61 Malignant neoplasm of prostate (principal) ==

== ENCOUNTER → 2024-04-13 | Outpatient (REF) | payer MEDICARE, MEDICAID ==
[2024-04-13 17:51] LABS: BASO # 0.1 10^3/uL (0.0-0.2); BASO % 0.9 % (0.0-1.0); EOS # 0.2 10^3/uL (0.0-0.5); HEMATOCRIT 42.9 % (42.0-52.0); HEMOGLOBIN 15.1 g/dl (13.5-17.5); LYMPH # 1.4 10^3/uL (1.5-5.0); LYMPH % 23.3 % (24.0-44.0); MEAN CORPUSCULAR HEMOGLOBIN 33.3 pg (27.0-33.0); MEAN CORPUSCULAR HGB CONC 35.2 g/dl (32.0-36.5); MEAN CORPUSCULAR VOLUME 94.5 fl (80.0-96.0); MONO # 0.6 10^3/uL (0.0-0.8); MONO % 10.3 % (2.0-8.0); NEUTROPHILS # 3.5 10^3/uL (1.5-8.5); NEUTROPHILS % 60.8 % (36.0-66.0); PLATELET COUNT, AUTOMATED 245 10^3/uL (150-450); RED BLOOD COUNT 4.54 10^6/uL (4.30-6.10); WHITE BLOOD COUNT 5.8 10^3/uL (4.0-10.0)
[2024-04-13 18:01] LABS: HEMOGLOBIN A1c 5.2 % (4.0-6.0)
[2024-04-13 18:18] LABS: ALBUMIN 3.6 G/DL (3.2-5.2); ALKALINE PHOSPHATASE 63 U/L (40-129); ALT/SGPT 13 U/L (7.0-40); AST/SGOT 27 U/L (<34); BILIRUBIN,TOTAL 0.5 MG/DL (0.3-1.2); BLOOD UREA NITROGEN 24 MG/DL (9-23); CALCIUM LEVEL 8.7 MG/DL (8.3-10.6); CARBON DIOXIDE LEVEL 28 MMOL/L (20-31); CHLORIDE LEVEL 104 MMOL/L (98-107); CHOLESTEROL LEVEL 149 MG/DL (<200); CHOLESTEROL RISK RATIO 2.53 (<5); CREATININE FOR GFR 0.71 MG/DL (0.70-1.30); GLOMERULAR FILTRATION RATE > 60.0 (>49); GLUCOSE, FASTING 78 MG/DL (74-106); HDL CHOLESTEROL 58.8 MG/DL (>40); LDL CHOLESTEROL 74.4 MG/DL (<100); NON-HDL-C 90.2 MG/DL; POTASSIUM SERUM 4.3 MMOL/L (3.5-5.1); SODIUM LEVEL 142 MMOL/L (136-145); TOTAL PROTEIN 7.1 G/DL (5.7-8.2); TRIGLYCERIDES LEVEL 79 MG/DL (<150)
[2024-04-13 18:19] LABS: FREE T4 1.22 NG/DL (0.89-1.76); THYROID STIMULATING HORMONE 1.673 uIU/ML (0.55-4.78)
== END ==
LOC: M SFHCCLAY 14:26
PROVIDERS: ATTEND Nurse Practitioner Family
DX: I10 Essential (primary) hypertension (principal); C61 Malignant neoplasm of prostate; Z13.1 Encounter for screening for diabetes mellitus

== ENCOUNTER → 2025-01-13 | Outpatient (REF) | payer MEDICARE, MEDICAID | LOC: M SFHCCLAY 14:28 | PROVIDERS: ATTEND Urology | DX: C61 Malignant neoplasm of prostate (principal) ==